=== PATIENT | male | born 1995 | race African-American/Black ===

== ENCOUNTER 2017-07-27 03:02 | Emergency (ER) | payer MEDICAID ==
[~2017-07-27] VITALS: Ht 175.3 cm; Wt 59.0 kg
[~2017-07-27 03:02] MED LIST: ACETAMINOPHEN-1 EAC1 ORAL; CIPROFLOXACIN500 M2 ORAL; COLACE100 MG ORAL; CYCLOBENZAPRINE10 MG ORAL; DAPSONE100 M1 ORAL; DAPSONE100 MG ORAL; DOXYCYCLINE HY100 M6 PO; IBUPROFEN600 MG ORAL; IMODIUM2 MG ORAL; LOVENOX60 MG/0.6 SUBQ; METRONIDAZOLE500 MG ORAL; NEXIUM20 MG ORAL; NORCO 5-325 TA1 EACH ORAL; NORVIR100 M2 ORAL; PERCOCET 5-3251 EACH ORAL; PREZCOBIX 8001 EACH PO; TIVICAY50 MG ORAL; TRUVADA 200 MG1 EAC1 ORAL; UNOBMED; VITAMIN B-121000 MCG PO; ZITHROMAX600 MG ORAL; ZOFRAN ODT4 MG ORAL
[2017-07-27 03:09] VITALS: BP 92/48
--- NOTE | 2017-07-27 03:20 | Emergency Room Report ---
History of Present Illness General Chief Complaint: Abdominal Pain Source: Patient, Medical Record Present Illness HPI Is a 21-year-old male with history HIV/AIDS. He said is compliant with his medication. He presents with chief complaint abdominal pain. This is a chronic problem. Onset tonight. Pain is severe 10 out of 10. He is requesting any pain medication. Has not had vomiting. Also with diarrhea. Vomiting is nonbloody nonbilious. Diarrhea is watery. No fever chills. no trauma. Allergies: Coded Allergies: SULFAMETHOXAZOLE (Verified Allergy, Unknown, 08/16/15) TRIMETHOPRIM (Verified Allergy, Unknown, 08/16/15) Patient History Past Medical History: see triage record, old chart reviewed, HIV Past Surgical History: other Pertinent Family History: none Social History: Denies: drug use Immunizations: other Reviewed Nursing Documentation: PMH: Agreed, PSxH: Agreed Nursing Documentation-PMH Hx Cardiac Problems: Yes - HIV POSITIVE Hx Hypertension: No Hx Cancer: No Hx Neurological Problems: Yes - Meningitis Hx Meningitis: Yes Review of Systems Eye: Denies: eye pain, blurred vision ENT: Denies: ear pain, nose congestion, throat swelling Respiratory: Denies: cough, shortness of breath Cardiovascular: Denies: chest pain, palpitations Gastrointestinal: Reports: abdominal pain, diarrhea, nausea, vomiting Musculoskeletal: Denies: back pain, joint pain Skin: Denies: rash Neurological: Denies: headache, numbness Endocrine: Denies: increased thirst, increased urine Hematologic/Lymphatic: Denies: easy bruising All Other Systems: negative except mentioned in HPI Physical Exam Vital Signs Date Time Temp Pulse Resp B/P (MAP) Pulse Ox O2 Delivery O2 Flow Rate FiO2 07/27/17 03:02 97.0 72 16 99/63 100 Room Air vitals normal Sp02 EP Interpretation: reviewed, normal General Appearance: well appearing, no apparent distress, alert, thin Head: normocephalic, atraumatic Eyes: bilateral eye PERRL, bilateral eye EOMI ENT: hearing grossly normal, normal pharynx Neck: full range of motion, supple, no meningismus Respiratory: chest non-tender, lungs clear, normal breath sounds Cardiovascular #1: regular rate, rhythm, no murmur Gastrointestinal: normal bowel sounds, no mass, no organomegaly, no bruit, non- distended, tenderness - diffuse Musculoskeletal: back normal, gait/station normal, normal range of motion Psychiatric: mood/affect normal Skin: warm/dry Medical Decision Making Diagnostic Impression: Primary Impression: Abdominal pain of unknown etiology Additional Impressions: Chronic pain Qualified Codes: G89.4 - Chronic pain syndrome Opiate dependence Qualified Codes: F11.20 - Opioid dependence, uncomplicated ER Course Patient presents with abdominal pain. He claimed nausea vomiting or diarrhea. No nausea vomiting or diarrhea. Keep asking for pain medication. Claimed that he is allergic to Toradol. He said that he hasn't been to any recent hospital for months. He has evidence of blood draw with a gauze in his right a.c. He was at [facility] July 13 for the same thing. Labs are at baseline. We'll discharge home. Lab Results Impression labs at baseline Last Vital Signs Date Time Temp Pulse Resp B/P (MAP) Pulse Ox O2 Delivery O2 Flow Rate FiO2 07/27/17 03:02 97.0 72 16 99/63 100 Room Air Status: improved Disposition: HOME, SELF-CARE Condition: Stable Patient Instructions: Abdominal Pain, Adult Additional Instructions: Stop go to different hospitals for your abdominal pain. Followup with your Dr. in 2-3 days. Return if symptom worsen. VARGAS WATSON M.D. Jul 27, 2017 03:20
[2017-07-27] MEDS ORDERED: Acetaminophen 500mg (ES) tab ORAL ONE (03:30)
[2017-07-27 03:47] LABS: MEAN CORPUSCULAR HGB CONC 31.7 G/DL (32.0-36.0); MEAN CORPUSCULAR VOLUME 123 FL (80-99); MEAN PLATELET VOLUME 5.8 FL (6.5-10.1); PLATELET COUNT 164 K/UL (150-450); RED BLOOD COUNT 2.39 M/UL (4.70-6.10); RED CELL DISTRIBUTION WIDTH 19.9 % (11.6-14.8); WHITE BLOOD COUNT 2.2 K/UL (4.8-10.8)
[2017-07-27 04:01] LABS: ALANINE AMINOTRANSFERASE 86 U/L (12-78); ALBUMIN/GLOBULIN RATIO 0.6 (1.0-2.7); ANION GAP 10 (5-15); ASPARTATE AMINO TRANSFERASE 49 U/L (15-37); CARBON DIOXIDE 21 MMOL/L (21-32); CHLORIDE 108 MMOL/L (98-107); CREATININE 1.8 MG/DL (0.55-1.30); GLOMERULAR FILTRATION RATE 58.1 mL/min (>60); LIPASE 273 U/L (73-393); POTASSIUM 4.8 MMOL/L (3.5-5.1); SODIUM 139 MMOL/L (136-145); TOTAL PROTEIN 10.2 G/DL (6.4-8.2)
[2017-07-27 04:30] VITALS: BP 104/70
[2017-07-27 05:56] LABS: BAND NEUTROPHILS % (MANUAL) 41 % (0-8); EOSINOPHILS % (MANUAL) 8 % (0-3); LYMPHOCYTES % (MANUAL) 36 % (20-45); NEUTROPHILS % (MANUAL) 12 % (45-75); TOTAL CELLS COUNTED 100
[2017-07-27 05:57] LABS: ANISOCYTOSIS 1+; BASOPHILS % (MANUAL) 0 % (0-2); HYPOCHROMASIA 1+; MACROCYTES 1+; PLATELET ESTIMATE ADEQUATE; PLATELET MORPHOLOGY NORMAL
[2017-07-31 11:46] LABS: OTHERS PATHOLOGIST COMMENT
== END 2017-07-27 04:30 | disposition home or self-care (01) ==
LOC: EDBD 03:02 → EMR 03:20
DX: R10.9 Unspecified abdominal pain (principal); G89.29 Other chronic pain; Z88.2 Allergy status to sulfonamides; R19.7 Diarrhea, unspecified; R11.2 Nausea with vomiting, unspecified; F11.20 Opioid dependence, uncomplicated; Z86.61 Personal history of infections of the central nervous system
CPT/HCPCS: 36415; 80053; 83690; 85007; 85025; 96361; 96374; 99284; J2405